=== PATIENT | male | born 1990 | race African-American/Black ===

== ENCOUNTER 2016-11-20 03:39 | Emergency (ER) | payer OTHER | END 2016-11-20 04:46 | disposition home or self-care (01) | LOC: CED 03:39 | DX: S13.9XXA Sprain of joints and ligaments of unspecified parts of neck, initial encounter (principal); S23.3XXA Sprain of ligaments of thoracic spine, initial encounter; S33.5XXA Sprain of ligaments of lumbar spine, initial encounter; S76.011A Strain of muscle, fascia and tendon of right hip, initial encounter; F17.200 Nicotine dependence, unspecified, uncomplicated; V43.62XA Car passenger injured in collision with other type car in traffic accident, initial encounter | CPT/HCPCS: 99284 ==